=== PATIENT | female | born 1970 | race Caucasian/White ===

== ENCOUNTER 2020-08-16 08:44 | Emergency (ER) | payer OTHER ==
[~2020-08-16] VITALS: Ht 157.5 cm; Wt 73.5 kg
[2020-08-16 09:12] VITALS: BP 114/74; Ht 157.5 cm; Wt 73.5 kg
[2020-08-16 10:57] LABS: BASOPHIL % 0.3 % (0.2-1.3); PLATELET COUNT 293 x10^3mcL (179-408); RED CELL DISTRIBUTION WIDTH 13.3 % (12.3-17.7)
[2020-08-16 11:19] LABS: CALCIUM 8.7 mg/dL (8.5-10.1); CARBON DIOXIDE 21.9 mmol/L (21-32); CHLORIDE SERUM 97 mmol/L (98-107); GFR1 > 60 mL/min; GLUCOSE SERUM 102 mg/dL (74-106); POTASSIUM SERUM 3.2 mmol/L (3.5-5.1); SODIUM SERUM 134 mmol/L (136-145)
[2020-08-16 11:23] LABS: ALKALINE PHOSPHATASE 62 U/L (46-116); ALT/SGPT 20 U/L (14-59); AST/SGOT 20 U/L (15-37); BILIRUBIN TOTAL 0.4 mg/dL (0.20-1.00); LIPASE 123 IU/L (73-393)
[2020-08-16 11:25] LABS: TOTAL PROTEIN, SERUM 8.7 g/dL (6.4-8.2)
[2020-08-16 15:02] LABS: rbc morphology (normal/abnorm) NORMAL (NORMAL)
== END 2020-08-16 14:08 | disposition home or self-care (01) ==
LOC: ED 08:44
DX: K80.20 Calculus of gallbladder without cholecystitis without obstruction (principal); N39.0 Urinary tract infection, site not specified
CPT/HCPCS: J1885